=== PATIENT | male | born 1955 | race Caucasian/White ===

== ENCOUNTER 2023-10-05 07:11 | Day surgery (SDC) | payer OTHER, SELFPAY | END 2023-10-05 09:46 | disposition home or self-care (01) | LOC: CATH 07:11 | PROVIDERS: ATTENDING PHYSICIAN Internal Medicine Cardiovascular Disease | DX: I48.91 Unspecified atrial fibrillation (principal); I08.0 Rheumatic disorders of both mitral and aortic valves | CPT/HCPCS: 93312; 93320; 93325; 92960; 93005 ==

== ENCOUNTER → 2024-05-24 15:12 | Outpatient (REF) | payer OTHER, SELFPAY | LOC: RAD 15:12 | PROVIDERS: ATTENDING PHYSICIAN Nurse Practitioner Family | DX: S13.4XXA Sprain of ligaments of cervical spine, initial encounter (principal); M25.471 Effusion, right ankle | CPT/HCPCS: 72040; 73610 ==

== ENCOUNTER → 2024-06-07 08:47 | Outpatient (REF) | payer SELFPAY | LOC: RAD 08:47 | PROVIDERS: ATTENDING PHYSICIAN Family Medicine | DX: E78.5 Hyperlipidemia, unspecified (principal) | CPT/HCPCS: 75571 ==

== ENCOUNTER → 2024-08-17 09:48 | Outpatient (REF) | payer OTHER, SELFPAY | LOC: MRI 3T 09:48 | PROVIDERS: ATTENDING PHYSICIAN Specialist; FAMILY PHYSICIAN Family Medicine | DX: R97.20 Elevated prostate specific antigen [PSA] (principal) | CPT/HCPCS: 72197; A9575 ==

== ENCOUNTER → 2024-09-03 07:30 | Outpatient (REF) | payer OTHER, SELFPAY | LOC: RAD 07:30 | PROVIDERS: ATTENDING PHYSICIAN Family Medicine; REFERRING PHYSICIAN Internal Medicine Cardiovascular Disease | DX: R91.8 Other nonspecific abnormal finding of lung field (principal); R59.0 Localized enlarged lymph nodes | CPT/HCPCS: 71260; Q9967 ==

== ENCOUNTER 2024-10-08 06:24 | Day surgery (SDC) | payer OTHER, SELFPAY ==
[2024-10-08 14:49] VITALS: BMI 29.0
[2024-10-08 14:50] VITALS: BP 135/75; BMI 29.0
[2024-10-08 16:52] VITALS: BP 117/67; BP 135/75
[2024-10-08 17:00] VITALS: BP 123/67
[2024-10-08 17:15] VITALS: BP 119/74
[2024-10-08 17:19] VITALS: BP 123/69
[2024-10-08 17:30] VITALS: BP 121/65
== END 2024-10-08 17:50 | disposition home or self-care (01) ==
LOC: SDS 06:24
PROVIDERS: ATTENDING PHYSICIAN Internal Medicine Critical Care Medicine
DX: R59.0 Localized enlarged lymph nodes (principal); Z53.9 Procedure and treatment not carried out, unspecified reason
CPT/HCPCS: 31652; 88172; 88173; 88177

== ENCOUNTER → 2024-10-26 15:42 | Outpatient (REF) | payer OTHER, SELFPAY | LOC: RCS 15:42 | PROVIDERS: ATTENDING PHYSICIAN Internal Medicine Cardiovascular Disease; FAMILY PHYSICIAN Family Medicine | DX: I35.1 Nonrheumatic aortic (valve) insufficiency (principal) | CPT/HCPCS: 93306 ==